=== PATIENT | female | born 1955 | race Caucasian/White ===

== ENCOUNTER → 2018-08-02 | Outpatient (CLI) | payer BC ==
[2018-08-02 15:15] LABS: HCT 40.5 % (34.0-46.0); HGB 13.5 gm/dL (11.4-16.0); MCH 30.2 pg (25.0-35.0); MCHC 33.3 g/dL (31.0-37.0); MCV 90.7 fL (80.0-100.0); Mean Platelet Volume 6.8; Platelet Count 175 k/uL (150-450); RBC 4.46 m/uL (3.80-5.40); RDW 14.1 % (11.5-15.5); WBC 4.3 k/uL (3.8-10.6)
[2018-08-02 15:33] LABS: Partial Thromboplastin Time 22.1 sec (22.0-30.0); Prothrombin Time 9.7 sec (9.0-12.0)
[2018-08-02 15:34] LABS: ALT 46 U/L (9-52); AST 34 U/L (14-36); Albumin 4.2 g/dL (3.5-5.0); Alkaline Phosphatase 93 U/L (38-126); Anion Gap 10 mmol/L; Blood Urea Nitrogen 12 mg/dL (7-17); Calcium 9.5 mg/dL (8.4-10.2); Carbon Dioxide 27 mmol/L (22-30); Chloride 105 mmol/L (98-107); Glucose 119 mg/dL (74-99); Potassium 4.1 mmol/L (3.5-5.1); Sodium 142 mmol/L (137-145); Total Bilirubin 0.5 mg/dL (0.2-1.3); Total Protein 7.5 g/dL (6.3-8.2)
[2018-08-02 16:52] LABS: Appearance,Urine Clear (Clear); Bilirubin,Urine Negative (Negative); Blood,Urine Negative (Negative); Color,Urine Yellow; Glucose,Urine (UA) Negative (Negative); Ketones,Urine Negative (Negative); Leukocyte Esterase,Urine Negative (Negative); Nitrite,Urine Negative (Negative); Protein,Urine Negative (Negative); Specific Gravity,Urine 1.014 (1.001-1.035); Urobilinogen,Urine <2.0 mg/dL (<2.0)
== END | disposition home or self-care (01) ==
LOC: LABWHC1 14:18 → LABPAT 14:23
PROVIDERS: ATTEND Orthopaedic Surgery
DX: Z01.818 Encounter for other preprocedural examination (principal); Z01.812 Encounter for preprocedural laboratory examination
CPT/HCPCS: 36415; 80053; 81003; 85027; 85610; 85730; 87070; 93005

== ENCOUNTER 2018-08-08 09:15 | Inpatient (IN) | payer BC ==
[~2018-08-08 09:15] MED LIST: ACETAMINOPHEN TAB 500 MG TAB PO ONE; MELOXICAM 7.5 MG TAB PO ONE; ROPIVACAINE 246.25 MG, EPINEPHrine 0.5 MG, KETOROLAC 30 MG, cloNIDine HCL/PF 80 MCG, WA... MISCELLANE ONE; TRANEXAMIC ACID 1,000 MG in SODIUM CHLORIDE 0.9% 50 ML IVPB ONE; ceFAZolin IN SWFI 2 GM/20 ML SYRINGE IVP ONE
[2018-08-08] MEDS ORDERED: LACTATED RINGERS 1,000 ML IV ONE ×2 (10:30→12:35)
[2018-08-08] MEDS ORDERED: LIDOCAINE 1% 20 ML VIAL (10MG/ML) FOR IV START INTRADERMA ONE (10:30)
[2018-08-08] MEDS ORDERED: ONDANSETRON 4 MG/2 ML VIAL IVP ONE (10:40)
[2018-08-08] MEDS ORDERED: DEXAMETHASONE SOD PHOS (MDV) 100 MG/10 ML VIAL IV ONE (10:40)
[2018-08-08] MEDS ORDERED: MIDAZOLAM 2 MG/2 ML VIAL IV ONE (10:45)
[2018-08-08] MEDS ORDERED: fentaNYL (PF) 50 MCG/ML 2 ML AMP IV ONE (10:45)
[2018-08-08] MEDS ORDERED: NALOXONE 0.4 MG/ML 1 ML VIAL IV PRN (11:26)
[2018-08-08] MEDS ORDERED: MAGNESIUM HYDROXIDE 2,400 MG/10 ML CUP PO PRN (11:26)
[2018-08-08] MEDS ORDERED: HYDROcodone/APAP 5-325MG 1 EACH TAB PO PRN (11:26)
[2018-08-08] MEDS ORDERED: hydrOXYzine PAMOATE 25 MG CAP PO PRN (11:26)
[2018-08-08] MEDS ORDERED: NA PHOS,M-B/NA PHOS,DI-BA 133 ML ENEMA RECTAL PRN (11:26)
[2018-08-08] MEDS ORDERED: BISACODYL 10 MG SUPP RECTAL PRN (11:26)
[2018-08-08] MEDS ORDERED: HYDROmorphone 1 MG/ML 1 ML SYRINGE IVP PRN ×3 (11:26)
[2018-08-08] MEDS ORDERED: ROPIVACAINE 1,100 MG, SODIUM CHLORIDE 0.9% 500 ML 330 ML MISCELLANE PRN ×2 (11:27)
--- NOTE | 2018-08-08 11:30 | P.ONQ ---
Anesthesiology Proc Note - PNB - Peripheral Nerve Block Performed Left Adductor Canal Infusion Time Out Performed: Yes Procedure Start Time: 10:42 Indication: Acute Post-Operative Pain, Analgesia Specifically requested for management of pain by DrClaudia: Armani Yo Sedation Type: Sedate with meaningful contact maintained Preparation: Sterile Prep Position: Supine Catheter Depth at Skin (cm): 8 Catheter: Indwelling Needle Types: Other (see comment) (Pajunk) Needle Size: 150mm (6") Needle Gauge: 18 Technique: Ultrasound Injectate: 0.5% Ropivacaine (see comment for volume) (20cc) Blood Aspirated: Yes Pain Paresthesia on Injection Noted: No Resistance on Injection: Normal Events: Uneventful and Well Tolerated (Catheter was repositioned successfully)
[2018-08-08] MEDS ORDERED: ROCURONIUM BROMIDE 10 MG/ML 10 ML VIAL IV ONE (12:10)
[2018-08-08] MEDS ORDERED: fentaNYL (PF) 50 MCG/ML 2 ML AMP ONE (12:10)
[2018-08-08] MEDS ORDERED: LIDOCAINE 1% INJ 10MG/ML (20 ML MDV) ONE (12:10)
[2018-08-08] MEDS ORDERED: SODIUM CHLORIDE 0.9% 100 ML BAG ONE (12:10)
[2018-08-08] MEDS ORDERED: TRANEXAMIC ACID 1,000 MG/10 ML VIAL ONE (12:10)
[2018-08-08] MEDS ORDERED: ceFAZolin 3,000 MG in SODIUM CHLORIDE 0.9% IRRIGATIO 3,000 ML IRRIGATION ONE (12:10)
[2018-08-08] MEDS ORDERED: PROPOFOL 10 MG/ML 20 ML VIAL IV ONE (12:10)
[2018-08-08] MEDS ORDERED: SUCCINYLCHOLINE CHLORIDE 100 MG/5 ML SYR IV ONE (12:10)
[2018-08-08] MEDS ORDERED: MIDAZOLAM 2 MG/2 ML VIAL ONE (12:10)
--- NOTE | 2018-08-08 13:21 | P.OP ---
Date of Procedure: 08/08/18 Preoperative Diagnosis: Severe osteoarthritis left knee Postoperative Diagnosis: Severe osteoarthritis left knee Procedure(s) Performed: Left total knee arthroplasty Implants: Parisi [employer] Nephew Oxinium femoral component size 6, left Parisi & Nephew Carmen II left nonporous tibial baseplate size 4 Parisi [employer] Nephew size 9 mm Legion XLPE dished articular insert, size 3-4 Parisi [employer] Nephew Carmen II resurfacing patellar component, 32 mm All components were cemented using Juan Carlos bone cement.. The articulation is Oxinium on polyethylene. Anesthesia: GETA Surgeon: Armani Yo Release Of Information Specialist #1: Kenia Kolb Estimated Blood Loss (ml): 50 Pathology: other (Bone and cartilage) Condition: stable Disposition: PACU Indications for Procedure: After failure of conservative treatment we discussed the surgical and nonsurgical treatment options at length. Patient wishes to proceed with a total knee arthroplasty. Complications specific to this procedure were discussed at length, including but not limited to infection, bleeding, stiffness , and nerve injury. Patient is aware of all these complications and informed consent was obtained Operative Findings: The operative findings are consistent with severe osteoarthritis of the left knee Description of Procedure: Patient was seen in the preoperative area consent was reviewed and operative site was marked with a skin marker. An adductor canal pain catheter was placed by anesthesia in the preoperative area. Patient was then brought to the operating room and given preoperative antibiotics intravenously. A general anesthetic was administered by the anesthesia department. A tourniquet was placed on the upper thigh and the lower extremity was prepped and draped in usual sterile fashion. A gram of transexamic acid was given. A universal timeout was then performed which confirmed the patient's name, surgical site, ALLERGIES, and consent. The lower extremity was then exsanguinated and tourniquet was inflated to 250 mmHg. A standard and anterior midline approach to the knee was performed. The skin and subcutaneous tissue was dissected down to the patellar tendon. A medial parapatellar arthrotomy was then performed. The knee was then extended, the patellar was everted, and the knee was again flexed. Anterior horns of both menisci were excised, and a release was performed to the posterior medial aspect of the knee. On gross visual inspection, there was complete loss of articular cartilage in the medial and patellofemoral joint spaces. There was also significant cartilage damage in the lateral compartment. There were multiple periarticular osteophytes which were then removed with a Ronguer. The femoral canal was then opened with the appropriate drill, and the intramedullary femoral cutting guide was then placed and set for 4 of valgus. The distal femoral cutting block was then pinned in place, and the distal femur was then cut. The cutting block was then removed and the cut was checked for flatness. Next, the sizing guide was then placed and set for 3 external rotation based off of the epicondylar axis and Whitesides line. After the femur was sized, the appropriate 4-in-1 cutting block was then pinned in place. The anterior condyles were cut without notching. The posterior and chamfer cuts were performed while protecting the collateral ligaments. The cutting block was then removed, and the femoral canal was plugged with autologous bone. Attention was then directed to the tibia. The remaining ACL was removed with a Ronguer, and the tibia was then gently subluxed forward with a large bent knee retractor. Any remaining menisci was excised. The posterior lateral corner was cauterized in order to cauterize the lateral geniculate artery. The extra medullary tibial cutting guide was then placed, set for the appropriate rotation , slope, and depth of resection. The proximal tibia cutting guide was then pinned in place. Proximal tibia was then cut and sized. Next trials were then placed with the appropriate-sized insert. The knee was able to fully extend and flex to 130 and was stable throughout all range of motion. The knee was then extended, patella everted. Patella was then measured, and then using an osteotomy guide, the patella was cut at the appropriate level. The patella was then measured and drilled and the patella trial was then placed. The knee was then taken through range of motion with the patella trial and the patella tracked normally. The knee was then extended patella trial was then removed and the patella was everted. Knee was then flexed and lug holes were drilled through the femoral trial and the femoral trial was then removed. The tibial was then exposed, and the tibial broach guide was then pinned in place after it was set for the appropriate rotation to allow for the most coverage without overhang. The tibia was then reamed and broached. The cut surfaces of bone were then irrigated with pulsatile lavage. The posterior structures were injected with the ropivacaine solution. The knee was also irrigated with Irrisept solution. The components were then opened, the cement was mixed, and the components were then cemented in place. The cement was allowed to harden with the knee in full extension. While the cement was hardening, the remaining soft tissues were then injected with a ropivacaine solution, which consisted of 246.25 mg of ropivacaine, 0.5 mg of epinephrine, 30 mg of Toradol, 80 g of clonidine, and 48.45 mL of sterile water, for a total of 100 mL of fluid injected. After the cemented hardened. The tourniquet was released, and hemostasis was obtained. A second gram of transexamic acid was given. The knee was again irrigated. The knee was again taken through range of motion and found to be stable throughout all range of motion of 0-130 , and the patella tracked normally. The fascia was then closed with #2 strata fix suture. The subcutaneous tissue was closed with 3-0 Vicryl and 3-0 strata fix. Dermabond glue was used for the skin and placed with the knee in flexion. The patient was placed in a sterile silver dressing. Patient was then transferred to recovery room in stable condition. The property assistant JAKE Echavarria was required due the complexity surgery and the need for a skilled surgical technologist. She assisted in positioning, draping, retraction, and closure of the wound.
[2018-08-08] MEDS ORDERED: HYDROmorphone 1 MG/ML 1 ML SYRINGE IVP ONE ×2 (14:24→14:35)
--- NOTE | 2018-08-08 14:50 | XR ---
EXAMINATION TYPE: XR knee limited LT DATE OF EXAM: 08/08/2018 CLINICAL HISTORY: Left knee pain and arthritis status post total knee replacement. TECHNIQUE: Portable AP and crosstable lateral views of the left knee are obtained immediately postop eratively. COMPARISON: None FINDINGS: Metallic hardware from total left knee arthroplasty is seen and appears satisfactory in al ignment and position. There is evidence of recent surgery with diffuse subcutaneous gas and soft tis ondina swelling noted. IMPRESSION: METALLIC HARDWARE FROM TOTAL LEFT KNEE ARTHROPLASTY IS SATISFACTORY IN ALIGNMENT.
--- NOTE | 2018-08-08 15:48 | P.CONS ---
History of Present Illness - Reason for Consult Recommendations regarding antihypertensive medications. - History of Present Illness 62-year-old pleasant female admitted for left knee arthroplasty excessive underwent surgery clinically doing well. No denied any chest pain nausea vomiting abdominal pain. Did not pass gas yet did not move her bowel yet. Review of Systems REVIEW OF SYSTEMS: CONSTITUTIONAL: No fever, no malaise, no fatigue. HEENT: No recent visual problems or hearing problems. Denied any sore throat. CARDIOVASCULAR: No chest pain, orthopnea, PND, no palpitations, no syncope. PULMONARY: No shortness of breath, no cough, no hemoptysis. GASTROINTESTINAL: No diarrhea, no nausea, no vomiting, no abdominal pain. Normoactive bowel sounds. NEUROLOGICAL: No headaches, no weakness, no numbness. HEMATOLOGICAL: Denies any bleeding or petechiae. GENITOURINARY: Denies any burning micturition, frequency, or urgency. MUSCULOSKELETAL/RHEUMATOLOGICAL: Denies any joint pain, swelling, or any muscle pain. ENDOCRINE: Denies any polyuria or polydipsia. The rest of the 14-point review of systems is negative. Past Medical History Past Medical History: Fibromyalgia, GERD/Reflux, Hypertension, Osteoarthritis ( OA), Pneumonia, Rheumatoid Arthritis (RA) Additional Past Medical History / Comment(s): IBS, hx kidney stones, constipation, History of Any Multi-Drug Resistant Organisms: None Reported Past Surgical History: Back Surgery, Bladder Surgery, Breast Surgery, Hysterectomy, Orthopedic Surgery, Tonsillectomy Additional Past Surgical History / Comment(s): lelia breast reduction, lithotripsy , rbil achilles tendon surgery, lelia knee arthroscopy, bladder suspension, "stabalization" L4 L5 S1, breast biopsies, rt shoulder arthroscopy, left wrist bone spur, Past Anesthesia/Blood Transfusion Reactions: Previous Problems w/ Anesthesia, Motion Sickness Additional Past Anesthesia/Blood Transfusion Reaction / Comm: woke up twice during surgery Smoking Status: Never smoker - Past Family History Sister(s) Family Medical History: Deep Vein Thrombosis (DVT) Daughter(s) Family Medical History: Cancer Medications and Allergies Home Medications Medication Instructions Recorded Confirmed Type Cyclobenzaprine [Flexeril] 10 mg PO BID 09/09/15 08/08/18 History Hydroxychloroquine Sulfate 200 mg PO HS 09/09/15 08/08/18 History [Plaquenil] Metoprolol Succinate [Toprol XL] 25 mg PO HS 09/09/15 08/08/18 History Gabapentin [Neurontin] 300 mg PO TID 08/01/18 08/08/18 History amLODIPine BESYLATE [Norvasc] 10 mg PO HS 08/01/18 08/08/18 History traMADol HCL [Ultram] 50 mg PO TID 08/01/18 08/08/18 History Allergies Allergy/AdvReac Type Severity Reaction Status Date / Time diazepam [From Valium] Allergy "felt like Verified 08/08/18 15:28 I did not want to live anymore" epinephrine AdvReac Rapid Verified 08/08/18 15:28 Heart Rate, "pass out" Physical Exam Vitals: Vital Signs Temp Pulse Pulse Resp BP Pulse Ox 08/08/18 15:00 84 16 140/61 98 08/08/18 14:45 83 16 146/66 99 08/08/18 14:30 83 16 148/59 99 08/08/18 14:15 87 16 162/72 92 L 08/08/18 14:00 88 16 159/65 92 L 08/08/18 13:57 98.0 F 94 16 167/77 96 08/08/18 10:21 98 F 84 18 154/80 96 Intake and Output 08/08/18 08/08/18 08/08/18 06:59 14:59 22:59 Intake Total 1201 300 Output Total 50 Balance 1151 300 Intake: IV 1201 300 Output: Estimated Blood Loss 50 PHYSICAL EXAMINATION: GENERAL: The patient is alert and oriented x3, not in any acute distress. Well developed, well nourished. HEENT: Pupils are round and equally reacting to light. EOMI. No scleral icterus. No conjunctival pallor. Normocephalic, atraumatic. No pharyngeal erythema. No thyromegaly. CARDIOVASCULAR: S1 and S2 present. No murmurs, rubs, or gallops. PULMONARY: Chest is clear to auscultation, no wheezing or crackles. ABDOMEN: Soft, nontender, nondistended, normoactive bowel sounds. No palpable organomegaly. MUSCULOSKELETAL: Deferred to orthopedic surgery and left knee is wrapped with an Jaspreet bandage and no surgical drain EXTREMITIES: No cyanosis, clubbing, or pedal edema. NEUROLOGICAL: Gross neurological examination did not reveal any focal deficits. SKIN: No rashes. Assessment and Plan Plan: -Left knee arthroplasty postoperative day 0: Pain management and DVT prophylaxis as per primary service. -Hypertension patient blood pressure is well controlled and she did take her Norvasc today which resumed from tomorrow morning along with metoprolol -Rheumatoid arthritis: Plaque will be resumed -Chronic low back pain had a lumbar decompression surgery in the past -Gastroesophageal reflux disease -Fibromyalgia for which patient is on gabapentin which will be continued
[2018-08-08] MEDS: GABAPENTIN 300 MG CAP PO SCH ×2 (17:06→22:34)
[2018-08-08] MEDS: SODIUM CHLORIDE 0.9% 1,000 ML IV SCH (17:06)
[2018-08-08 17:17] VITALS: BMI 34.1
[2018-08-08] MEDS ORDERED: METOPROLOL SUCCINATE (ER) 25 MG TAB.ER.24H PO SCH (21:00)
[2018-08-08] MEDS ORDERED: SENNOSIDES-DOCUSATE SODIUM 1 EACH TAB PO SCH (21:00)
[2018-08-08] MEDS ORDERED: amLODIPine 10 MG TAB PO SCH (21:00)
[2018-08-08] MEDS ORDERED: HYDROXYCHLOROQUINE SULFATE 200 MG TAB PO SCH (21:00)
[2018-08-08] MEDS: ceFAZolin IN SWFI 2 GM/20 ML SYRINGE IVP SCH (21:19)
[2018-08-08] MEDS: ASPIRIN 325 MG TAB PO SCH (21:20)
[2018-08-08] MEDS: CYCLOBENZAPRINE 10 MG TAB PO SCH (21:20)
[2018-08-08] MEDS: HYDROcodone/APAP 5-325MG 1 EACH TAB PO PRN (22:34)
[2018-08-08 23:59] VITALS: RESP 17
[2018-08-09] MEDS: ceFAZolin IN SWFI 2 GM/20 ML SYRINGE IVP SCH (03:35)
[2018-08-09] MEDS: SODIUM CHLORIDE 0.9% 1,000 ML IV SCH ×2 (04:27→09:19)
[2018-08-09 08:10] VITALS: BP 165/86; PULSE 78; TEMP 98.1
--- NOTE | 2018-08-09 08:36 | P.DS ---
Providers Date of admission: 08/08/18 09:30 Expected date of discharge: 08/09/18 Attending physician: Armani Yo Consults: 08/08/18 11:26 Consult Physician Routine Consulting Provider: Zena Dalal Consult Reason/Comments: medical management Do you want consulting provider notified?: Yes 08/08/18 15:20 Consult Physician Routine Consulting Provider: Jasmin Baca Consult Reason/Comments: medical management Do you want consulting provider notified?: Yes Primary care physician: Zena Dalal - Discharge Diagnosis(es) (1) S/P total knee arthroplasty Current Visit: Yes Status: Acute (2) Primary osteoarthritis of left knee Current Visit: Yes Status: Acute Hospital Course: This is a 62-year-old female with known history of degenerative arthritis of the left knee. The patient presents for evaluation. After discussion and consideration patient elects to proceed with total knee arthroplasty. The patient is seen preoperatively by Dr. Yo and medically cleared for surgery by their primary care physician. Patient is admitted to [facility] on 08/08/2018 for total knee arthroplasty. The procedures performed without complication or sequelae. The patient is doing well postoperatively. Labs and vital signs are stable on day of discharge. On day of discharge patient's knee incision is healing well. There is minimal erythema. There is no drainage noted at this time. There is minimal soft tissue swelling to the knee. Patient has full foot and ankle motion without difficulty or pain. Neurovascular status to the left lower extremity is intact. Patient is discharged home in good condition. Please see med rec for accurate list of home medications. Plan - Discharge Summary Discharge Rx Participant: Yes New Discharge Prescriptions: New Aspirin 325 mg PO BID #60 tab HYDROcodone/APAP 5-325MG [[place] 5-325] 1 - 2 tab PO Q4-6H PRN #84 tab PRN Reason: Pain Sennosides [Senokot] 1 tab PO BID #60 tablet No Action Metoprolol Succinate [Toprol XL] 25 mg PO HS Cyclobenzaprine [Flexeril] 10 mg PO BID Hydroxychloroquine Sulfate [Plaquenil] 200 mg PO HS traMADol HCL [Ultram] 50 mg PO TID Gabapentin [Neurontin] 300 mg PO TID amLODIPine BESYLATE [Norvasc] 10 mg PO HS Discharge Medication List Cyclobenzaprine [Flexeril] 10 mg PO BID 09/09/15 [History] Hydroxychloroquine Sulfate [Plaquenil] 200 mg PO HS 09/09/15 [History] Metoprolol Succinate [Toprol XL] 25 mg PO HS 09/09/15 [History] Gabapentin [Neurontin] 300 mg PO TID 08/01/18 [History] amLODIPine BESYLATE [Norvasc] 10 mg PO HS 08/01/18 [History] traMADol HCL [Ultram] 50 mg PO TID 08/01/18 [History] Aspirin 325 mg PO BID #60 tab 08/09/18 [Rx] HYDROcodone/APAP 5-325MG [[place] 5-325] 1 - 2 tab PO Q4-6H PRN #84 tab 08/09/18 [ Rx] Sennosides [Senokot] 1 tab PO BID #60 tablet 08/09/18 [Rx] Follow up Appointment(s)/Referral(s): Armani Yo DO [Doctor of Osteopathic Medicine] - 2 Weeks Ambulatory/Diagnostic Orders: Continuous Passive Motion (CPM) Machine [DME.AMB1] Time Frame: 3 Weeks, Location : None Selected Activity/Diet/Wound Care/Special Instructions: Weightbearing as tolerated with a walker CPM 5-6h daily Leave dressing intact. May be removed by home care nurse in 10 days. May shower with dressing on. Please call [facility] with any questions or concerns, . Discharge Disposition: HOME WITH HOME HEALTH SERVICES
[2018-08-09] MEDS ORDERED: MELOXICAM 7.5 MG TAB PO SCH (09:00)
[2018-08-09] MEDS: CYCLOBENZAPRINE 10 MG TAB PO SCH (09:17)
[2018-08-09] MEDS: GABAPENTIN 300 MG CAP PO SCH (09:18)
[2018-08-09] MEDS: ASPIRIN 325 MG TAB PO SCH (09:19)
[2018-08-09 10:37] LABS: Basophils % (A) 0 %; Eosinophils % (A) 0 %; HCT 37.7 % (34.0-46.0); HGB 12.2 gm/dL (11.4-16.0); Lymphocytes % (A) 10 %; MCH 29.5 pg (25.0-35.0); MCHC 32.4 g/dL (31.0-37.0); MCV 91.1 fL (80.0-100.0); Mean Platelet Volume 7.4; Monocytes # (A) 0.6 k/uL (0-1.0); Monocytes % (A) 6 %; Neutrophils # (A) 8.5 k/uL (1.3-7.7); Neutrophils % (A) 83 %; Platelet Count 202 k/uL (150-450); RBC 4.14 m/uL (3.80-5.40); RDW 13.9 % (11.5-15.5); WBC 10.2 k/uL (3.8-10.6)
[2018-08-09] MEDS: HYDROcodone/APAP 5-325MG 1 EACH TAB PO PRN (11:53)
--- NOTE | 2018-08-09 12:02 | P.PN ---
Progress Note - Text Anesthesia POD 1. Patient is status post left TKR under general endotracheal anesthesia with a left adductor canal catheter placed for postoperative pain relief. With ropivacaine 0.2% running at 8 cc's per hour, the patient's VAS is (1, 3). Catheter site is clean dry and intact.
--- NOTE | 2018-08-09 20:10 | P.PN ---
Subjective Progress Note Date: 08/09/18 Progress note being dictated for Dr. Ivan. Interval history:62-year-old pleasant female admitted for left knee arthroplasty excessive underwent surgery clinically doing well. No denied any chest pain nausea vomiting abdominal pain. Did not pass gas yet did not move her bowel yet. 08/09/2018 passing minimal gas, no bowel movement. Pain controlled. Good diet intake, no nausea, no vomiting. Ambulating, tolerating exertion with no lightheadedness dizziness or focal deficits. Denies chest pain, palpitations. Planning on discharge by orthopedic surgery today. Objective - Vital Signs Vital signs: Vital Signs Temp 98.1 F 08/09/18 06:50 Pulse 78 08/09/18 06:50 Resp 17 08/08/18 23:58 BP 165/86 08/09/18 06:50 Pulse Ox 96 08/09/18 06:50 Intake & Output 08/08/18 08/09/18 08/09/18 18:59 06:59 18:59 Intake Total 1501 360 300 Output Total 50 Balance 1451 360 300 Weight 107.955 kg Intake: IV 1501 Oral 360 300 Output: Estimated Blood Loss 50 Other: # Voids 1 - Exam GENERAL: The patient is alert and oriented x3, not in any acute distress. HEENT: Pupils are round and equally reacting to light. EOMI. No scleral icterus. No conjunctival pallor. Normocephalic, atraumatic. CARDIOVASCULAR: S1 and S2 present. No murmurs, rubs, or gallops. PULMONARY: Chest is clear to auscultation, no wheezing or crackles. ABDOMEN: Soft, nontender, nondistended, normoactive bowel sounds. No palpable organomegaly. MUSCULOSKELETAL: Deferred to orthopedic surgery EXTREMITIES: No cyanosis, clubbing, or pedal edema. NEUROLOGICAL: Gross neurological examination did not reveal any focal deficits. SKIN: No rashes. - Labs CBC & Chem 7: 08/09/18 08:24 Labs: Abnormal Lab Results - Last 24 Hours (Table) 08/09/18 Range/Units 08:24 Neutrophils # 8.5 H (1.3-7.7) k/uL Assessment and Plan Assessment: -Left knee arthroplasty -Hypertension -Rheumatoid arthritis -Chronic low back pain had a lumbar decompression surgery in the past -Gastroesophageal reflux disease -Fibromyalgia Plan: Continue on current medication regime ,monitoring and symptomatic treatment. Pain management and DVT prophylaxis as per primary service. Aggressive pulmonary toileting with incentive spirometer reinforced. Discharge planning in progress as per orthopedic surgery. Follow-up with PCP in 1 week. The impression and plan of care has been dictated as directed. : I performed a history and examination of this patient, discussed the same with the dictator. I agree with the dictator's note ,documented as a scribe. Any additional findings or plans will be noted.
== END 2018-08-09 12:45 | disposition home health service (06) | DRG 470 ==
LOC: 2ORMAIN 09:30 → 4SSUR 14:44
PROVIDERS: ADMIT Orthopaedic Surgery; ATTEND Orthopaedic Surgery
PROC: 0SRD069 Replacement of Left Knee Joint with Oxidized Zirconium on Polyethylene Synthetic Substitute, Cemented, Open Approach (ICD-10-PCS; principal; 2018-08-08 11:30)
DX: M17.0 Bilateral primary osteoarthritis of knee (principal); M06.9 Rheumatoid arthritis, unspecified; I10 Essential (primary) hypertension; M79.7 Fibromyalgia; K58.1 Irritable bowel syndrome with constipation; K21.9 Gastro-esophageal reflux disease without esophagitis; Z79.891 Long term (current) use of opiate analgesic; Z79.899 Other long term (current) drug therapy; Z87.01 Personal history of pneumonia (recurrent); Z87.442 Personal history of urinary calculi; Z90.710 Acquired absence of both cervix and uterus; Z98.890 Other specified postprocedural states; Z88.8 Allergy status to other drugs, medicaments and biological substances; Z83.2 Family history of diseases of the blood and blood-forming organs and certain disorders involving the immune mechanism; Z80.9 Family history of malignant neoplasm, unspecified; G89.29 Other chronic pain; M54.5 Low back pain
CPT/HCPCS: 85025; 88300

== ENCOUNTER → 2018-09-21 | Outpatient (CLI) | payer BC | END | disposition home or self-care (01) | LOC: LABPAT 15:44 | PROVIDERS: ATTEND Orthopaedic Surgery | DX: Z01.812 Encounter for preprocedural laboratory examination (principal) | CPT/HCPCS: 87070 ==

== ENCOUNTER 2018-10-03 09:15 | Inpatient (IN) | payer BC ==
[~2018-10-03 09:15] MED LIST changes: +DEXAMETHASONE SOD PHOSPHATE 10 MG/ML 1 ML VIAL IV ONE; +HYDROmorphone 0.5 MG/0.5 ML SYRINGE IVP PRN; +LIDOCAINE 1% 20 ML VIAL (10MG/ML) FOR IV START INTRADERMA PRN; +MIDAZOLAM (PF) 2 MG/2 ML VIAL IV PRN; +ONDANSETRON 4 MG/2 ML VIAL IVP ONE; +SCOPOLAMINE 1.5MG/72HR PATCH TRANSDERM ONE
[2018-10-03] MEDS: LACTATED RINGERS 1,000 ML IV SCH (12:22)
[2018-10-03] MEDS ORDERED: ROPIVACAINE 1,100 MG, SODIUM CHLORIDE 0.9% 500 ML 330 ML MISCELLANE PRN ×2 (13:09)
--- NOTE | 2018-10-03 13:11 | P.ONQ ---
Anesthesiology Proc Note - PNB - Peripheral Nerve Block Performed Right Adductor Canal Infusion Time Out Performed: Yes Procedure Start Time: 12:50 Procedure Stop Time: 12:58 Indication: Acute Post-Operative Pain, Analgesia, Dx/Pain Location, Requested by physician Sedation Type: Sedate with meaningful contact maintained Preparation: Sterile Prep Position: Supine Catheter: Indwelling Needle Types: On-Q Needle Size: 100mm (4") Technique: Ultrasound Injectate: 0.5% Ropivacaine (see comment for volume) Blood Aspirated: No Pain Paresthesia on Injection Noted: No Resistance on Injection: Normal Events: Uneventful and Well Tolerated (20 ml total volume)
[2018-10-03] MEDS ORDERED: SODIUM CHLORIDE 0.9% 100 ML BAG ONE (13:59)
[2018-10-03] MEDS ORDERED: ePHEDrine SULFATE/0.9% NACL/PF 50 MG/5 ML SYRINGE IV ONE (13:59)
[2018-10-03] MEDS ORDERED: TRANEXAMIC ACID 1,000 MG/10 ML VIAL ONE (13:59)
[2018-10-03] MEDS ORDERED: MIDAZOLAM 2 MG/2 ML VIAL ONE (13:59)
[2018-10-03] MEDS ORDERED: PHENYLEPHRINE-0.9% NACL SYG 1 MG/10 ML SYRINGE ONE (13:59)
[2018-10-03] MEDS ORDERED: fentaNYL (PF) 50 MCG/ML 2 ML AMP ONE (13:59)
[2018-10-03] MEDS ORDERED: SUCCINYLCHOLINE CHLORIDE 100 MG/5 ML SYR IV ONE (13:59)
[2018-10-03] MEDS ORDERED: LIDOCAINE 1% INJ 10MG/ML (20 ML MDV) ONE (13:59)
[2018-10-03] MEDS ORDERED: PROPOFOL 10 MG/ML 20 ML VIAL IV ONE (13:59)
[2018-10-03] MEDS ORDERED: BISACODYL 10 MG SUPP RECTAL PRN (14:07)
[2018-10-03] MEDS ORDERED: NA PHOS,M-B/NA PHOS,DI-BA 133 ML ENEMA RECTAL PRN (14:07)
[2018-10-03] MEDS ORDERED: hydrOXYzine PAMOATE 25 MG CAP PO PRN (14:07)
[2018-10-03] MEDS ORDERED: HYDROmorphone 1 MG/ML 1 ML SYRINGE IVP PRN (14:07)
[2018-10-03] MEDS ORDERED: MAGNESIUM HYDROXIDE 2,400 MG/10 ML CUP PO PRN (14:07)
[2018-10-03] MEDS ORDERED: HYDROmorphone 0.5 MG/0.5 ML SYRINGE IVP PRN ×2 (14:07)
[2018-10-03] MEDS ORDERED: HYDROcodone/APAP 5-325MG 1 EACH TAB PO PRN (14:07)
[2018-10-03] MEDS ORDERED: ONDANSETRON 4 MG/2 ML VIAL IVP PRN (14:07)
[2018-10-03] MEDS ORDERED: NALOXONE 0.4 MG/ML 1 ML VIAL IV PRN (14:07)
[2018-10-03] MEDS ORDERED: ceFAZolin 3,000 MG in SODIUM CHLORIDE 0.9% IRRIGATIO 3,000 ML IRRIGATION ONE (14:23)
[2018-10-03] MEDS ORDERED: LACTATED RINGERS 1,000 ML IV ONE (14:37)
--- NOTE | 2018-10-03 15:18 | P.OP ---
Date of Procedure: 10/03/18 Preoperative Diagnosis: Severe osteoarthritis right knee Postoperative Diagnosis: Severe osteoarthritis right knee Procedure(s) Performed: Right total knee arthroplasty Implants: [employer]i [employer] Nephew Journey II CR Oxinium cruciate retaining femoral component size 5, right [employer] Journey right nonporous tibial baseplate size 5 [employer] Journey II, XLPE CR articular insert, size 9 mm, Size 5-6 right [employer] Journey BCS resurfacing oval patellar component, 32 mm All components were cemented using Pal[place]os R bone cement.. The articulation is Oxinium on polyethylene. Anesthesia: spinal Surgeon: Armani Yo Camera Repair Technician #1: Kenia Kolb Estimated Blood Loss (ml): 50 Pathology: other (Bone and cartilage) Condition: stable Disposition: PACU Indications for Procedure: After failure of conservative treatment we discussed the surgical and nonsurgical treatment options at length. Patient wishes to proceed with a total knee arthroplasty. Complications specific to this procedure were discussed at length, including but not limited to infection, bleeding, stiffness , and nerve injury. Patient is aware of all these complications and informed consent was obtained Operative Findings: The operative findings are consistent with severe osteoarthritis of the right knee Description of Procedure: Patient was seen in the preoperative area consent was reviewed and operative site was marked with a skin marker. An adductor canal pain catheter was placed by anesthesia in the preoperative area. Patient was then brought to the operating room and given preoperative antibiotics intravenously. A spinal anesthetic was administered by the anesthesia department. A tourniquet was placed on the upper thigh and the lower extremity was prepped and draped in usual sterile fashion. A gram of transexamic acid was given. A universal timeout was then performed which confirmed the patient's name, surgical site, ALLERGIES, and consent. The lower extremity was then exsanguinated and tourniquet was inflated to 250 mmHg. A standard and anterior midline approach to the knee was performed. The skin and subcutaneous tissue was dissected down to the patellar tendon. A medial parapatellar arthrotomy was then performed. The knee was then extended, the patellar was everted, and the knee was again flexed. Anterior horns of both menisci were excised, and a release was performed to the posterior medial aspect of the knee. On gross visual inspection, there was complete loss of articular cartilage in the medial and patellofemoral joint spaces. There was also significant cartilage damage in the lateral compartment. There were multiple periarticular osteophytes which were then removed with a Ronguer. The femoral canal was then opened with the appropriate drill, and the intramedullary femoral cutting guide was then placed and set for 5 of valgus. The distal femoral cutting block was then pinned in place, and the distal femur was then cut. The cutting block was then removed and the cut was checked for flatness. Next, the sizing guide was then placed and set for 3 external rotation based off of the epicondylar axis and Whitesides line. After the femur was sized, the appropriate 4-in-1 cutting block was then pinned in place. The anterior condyles were cut without notching. The posterior and chamfer cuts were performed while protecting the collateral ligaments. The cutting block was then removed, and the femoral canal was plugged with autologous bone. Attention was then directed to the tibia. The remaining ACL was removed with a Ronguer, and the tibia was then gently subluxed forward with a large bent knee retractor. Any remaining menisci was excised. The posterior lateral corner was cauterized in order to cauterize the lateral geniculate artery. The extra medullary tibial cutting guide was then placed, set for the appropriate rotation , slope, and depth of resection. The proximal tibia cutting guide was then pinned in place. Proximal tibia was then cut and sized. Next trials were then placed with the appropriate-sized insert. The knee was able to fully extend and flex to 130 and was stable throughout all range of motion. The knee was then extended, patella everted. Patella was then measured, and then using an osteotomy guide, the patella was cut at the appropriate level. The patella was then measured and drilled and the patella trial was then placed. The knee was then taken through range of motion with the patella trial and the patella tracked normally. The knee was then extended patella trial was then removed and the patella was everted. Knee was then flexed and lug holes were drilled through the femoral trial and the femoral trial was then removed. The tibial was then exposed, and the tibial broach guide was then pinned in place after it was set for the appropriate rotation to allow for the most coverage without overhang. The tibia was then reamed and broached. The cut surfaces of bone were then irrigated with pulsatile lavage. The posterior structures were injected with the ropivacaine solution. The knee was also irrigated with Irrisept solution. The components were then opened, the cement was mixed, and the components were then cemented in place. The cement was allowed to harden with the knee in full extension. While the cement was hardening, the remaining soft tissues were then injected with a ropivacaine solution, which consisted of 246.25 mg of ropivacaine, 0.5 mg of epinephrine, 30 mg of Toradol, 80 g of clonidine, and 48.45 mL of sterile water, for a total of 100 mL of fluid injected. After the cemented hardened. The tourniquet was released, and hemostasis was obtained. A second gram of transexamic acid was given. The knee was again irrigated. The knee was again taken through range of motion and found to be stable throughout all range of motion of 0-130 , and the patella tracked normally. The fascia was then closed with #2 strata fix suture. The subcutaneous tissue was closed with 3-0 Vicryl and 3-0 strata fix. Dermabond glue was used for the skin and placed with the knee in flexion. The patient was placed in a sterile silver dressing. Patient was then transferred to recovery room in stable condition. The gallery assistant JAKE Echavarria was required due the complexity surgery and the need for a skilled salesperson surgical appliances. She assisted in positioning, draping, retraction, and closure of the wound.
--- NOTE | 2018-10-03 16:23 | XR ---
EXAMINATION TYPE: XR knee limited RT DATE OF EXAM: 10/03/2018 COMPARISON: NONE HISTORY: 62-year-old female evaluation for postoperative abnormality and alignment TECHNIQUE: 2 views FINDINGS: Images show placement of right total knee arthroplasty. Both distal femoral and proximal tibial compo nents of the prosthesis are well seated without periprosthetic fracture. Alignment grossly anatomic. Anterior soft tissue swelling with soft tissue air as well as intra-articular air relating to recent operation. IMPRESSION: Uncomplicated postoperative appearance right total knee arthroplasty.
[2018-10-03] MEDS: SODIUM CHLORIDE 0.9% 1,000 ML IV SCH (18:00)
[2018-10-03 18:22] VITALS: BMI 34.1
[2018-10-03] MEDS: HYDROcodone/APAP 5-325MG 1 EACH TAB PO PRN (18:29)
[2018-10-03] MEDS ORDERED: SENNOSIDES-DOCUSATE SODIUM 1 EACH TAB PO SCH (21:00)
[2018-10-03] MEDS ORDERED: amLODIPine 10 MG TAB PO SCH (21:00)
[2018-10-03] MEDS ORDERED: METOPROLOL SUCCINATE (ER) 25 MG TAB.ER.24H PO SCH (21:00)
[2018-10-03] MEDS: GABAPENTIN 300 MG CAP PO SCH (22:52)
[2018-10-03] MEDS: traMADol 50 MG TAB PO SCH (22:52)
[2018-10-03] MEDS: CYCLOBENZAPRINE 10 MG TAB PO SCH (22:52)
[2018-10-03] MEDS: ASPIRIN 325 MG TAB PO SCH (22:52)
[2018-10-03] MEDS: ceFAZolin IN SWFI 2 GM/20 ML SYRINGE IVP SCH (22:52)
[2018-10-03] MEDS: HYDROXYCHLOROQUINE SULFATE 200 MG TAB PO SCH (23:34)
[2018-10-04] MEDS: HYDROcodone/APAP 5-325MG 1 EACH TAB PO PRN ×3 (00:40→13:09)
[2018-10-04 00:49] VITALS: RESP 16
[2018-10-04] MEDS: SODIUM CHLORIDE 0.9% 1,000 ML IV SCH (04:08)
[2018-10-04] MEDS: LACTATED RINGERS 1,000 ML IV SCH (04:16)
[2018-10-04] MEDS: ceFAZolin IN SWFI 2 GM/20 ML SYRINGE IVP SCH (05:58)
--- NOTE | 2018-10-04 06:14 | P.PN ---
Progress Note - Text Progress Note Date: 10/04/18 Right adductor canal catheter Postoperative day 1 Patient VAS 2 out of 10 Denies any complaints Abductor catheter site clean dry and intact Plan to continue with current plan infusion rate and management primary team to manage
--- NOTE | 2018-10-04 07:18 | CONS ---
CONSULTATION DATE OF SERVICE: 10/03/2018 REASON FOR CONSULTATION: Advice regarding fibromyalgia, hypertension and multiple other medical issues requested by Dr. Yo. HISTORY OF PRESENT ILLNESS: This 62-year-old woman with past history of fibromyalgia, GERD, hypertension, DJD, rheumatoid arthritis being followed by Dr. Dalal in the outpatient setting was admitted after right total knee arthroplasty. There is no history of fever, rigors. No history of headache, loss consciousness, seizures at this time. The patient had previous history of pneumonia. PAST MEDICAL HISTORY: Fibromyalgia, GERD, hypertension, DJD, history of rheumatoid arthritis, history of irritable bowel syndrome. MEDICATIONS: Prior to admission include home medications are: 1. Ultram 50 mg t.i.d. p.r.n. 2. Norvasc 10 mg daily. 3. Toprol-XL 25 mg. 4. Plaquenil 200 mg b.i.d. 5. Neurontin 300 mg b.i.d. 6. Flexeril 10 mg b.i.d. 7. Aspirin 320 mg p.o. b.i.d. ALLERGIES: VALIUM AND EPINEPHRINE. FAMILY HISTORY: History of cancer in the family. SOCIAL HISTORY: No history of smoking. No history of alcohol intake. REVIEW OF SYSTEMS: ENT: No diminished hearing or diminished vision. CARDIOVASCULAR: As mentioned earlier. RESPIRATORY: As mentioned earlier. GI no nausea or vomiting. no dysuria. NERVOUS SYSTEM: No numbness or weakness. ALLERGY/IMMUNOLOGY: No asthma or hayfever. MUSCULOSKELETAL: As mentioned earlier. HEMATOLOGY/ONCOLOGY: No history of anemia. ENDOCRINE: No history of diabetes or hypothyroidism. CONSTITUTIONAL: As mentioned earlier. Dermatology: Negative. Rheumatology: As mentioned earlier. Psychiatry: As mentioned earlier. PHYSICAL EXAMINATION: GENERAL: Alert and oriented times three. VITAL SIGNS: Pulse 91, blood pressure 126/77, respirations 18, temperature 97.5, pulse ox 98% on 2 L. HEENT: Conjunctivae normal. NECK: No jugular venous distention. CARDIOVASCULAR: S1, S2. RESPIRATORY: Breath sounds diminished in the bases. Scattered rhonchi and crackles. ABDOMEN: Soft, nontender. No mass palpable. LEGS: Status post right knee arthroplasty. NERVOUS SYSTEM: Higher functions as mentioned earlier. Moves all 4 limbs. No focal motor or sensory deficits. LYMPHATICS: No lymph nodes palpable of the neck, axilla and groin. SKIN: No ulcer, rash, bleeding. LABS: At this time shows labs are done prior to admission. Coags are negative. CBC and chemistries was within normal limits. Glucose 119, UA unremarkable. ASSESSMENT: 1. Status post right total knee arthroplasty. 2. History of fibromyalgia. 3. Hypertension. 4. History of gastroesophageal reflux disease. 5. Degenerative joint disease. 6. Rheumatoid arthritis. 7. syndrome. 8. History of back surgery. RECOMMENDATIONS AND DISCUSSION: In this 62-year-old woman who presented with multiple complex medical issues, we will monitor the patient closely, continue the current medications, management symptomatic treatment. Otherwise, I would recommend resume the home medications. Monitor the patient closely. Otherwise, I would recommend DVT prophylaxis. Incentive spirometry. Recommend close follow with Dr. Dalal after discharge from the hospital. Thank you, Dr. Yo for letting us participate in the care of this patient. We will follow the patient closely. Further recommendations to follow. MMODL / IJN: [id number] /
[2018-10-04 08:09] VITALS: BP 120/68; PULSE 73; TEMP 97.6
--- NOTE | 2018-10-04 08:30 | P.DS ---
Providers Date of admission: 10/03/18 11:39 Expected date of discharge: 10/04/18 Attending physician: Armani Yo Consults: 10/03/18 14:07 Consult Physician Routine Consulting Provider: Jasmin Baca Consult Reason/Comments: medical management Do you want consulting provider notified?: Yes Primary care physician: Zena Dalal - Discharge Diagnosis(es) (1) Primary osteoarthritis of right knee Current Visit: Yes Status: Acute (2) Status post total right knee replacement Current Visit: Yes Status: Acute Hospital Course: This is a 62-year-old female with known history of degenerative arthritis of the right knee. The patient presents for evaluation. After discussion and consideration patient elects to proceed with total knee arthroplasty. The patient is seen preoperatively by Dr. Yo and medically cleared for surgery by their primary care physician. Patient is admitted to [facility] on 10/03/2018 for total knee arthroplasty. The procedures performed without complication or sequelae. The patient is doing well postoperatively. Labs and vital signs are stable on day of discharge. On day of discharge patient's knee incision is healing well. There is minimal erythema. There is no drainage noted at this time. There is minimal soft tissue swelling to the knee. Patient has full foot and ankle motion without difficulty or pain. Neurovascular status to the right lower extremity is intact. Patient is discharged home in good condition. Please see med rec for accurate list of home medications. Plan - Discharge Summary New Discharge Prescriptions: New Aspirin 325 mg PO BID #60 tab HYDROcodone/APAP 5-325MG [[place] 5-325] 1 - 2 tab PO Q4-6H PRN #84 tab PRN Reason: Pain Sennosides [Senokot] 1 tab PO BID #60 tablet No Action Metoprolol Succinate [Toprol XL] 25 mg PO HS Cyclobenzaprine [Flexeril] 10 mg PO BID Hydroxychloroquine Sulfate [Plaquenil] 200 mg PO BID traMADol HCL [Ultram] 50 mg PO TID Gabapentin [Neurontin] 300 mg PO TID amLODIPine BESYLATE [Norvasc] 10 mg PO HS Aspirin 325 mg PO DAILY Discharge Medication List Cyclobenzaprine [Flexeril] 10 mg PO BID 09/09/15 [History] Hydroxychloroquine Sulfate [Plaquenil] 200 mg PO BID 09/09/15 [History] Metoprolol Succinate [Toprol XL] 25 mg PO HS 11/24/15 [History] Gabapentin [Neurontin] 300 mg PO TID 08/01/18 [History] amLODIPine BESYLATE [Norvasc] 10 mg PO HS 08/01/18 [History] traMADol HCL [Ultram] 50 mg PO TID 08/01/18 [History] Aspirin 325 mg PO DAILY 09/28/18 [History] Aspirin 325 mg PO BID #60 tab 10/04/18 [Rx] HYDROcodone/APAP 5-325MG [[place] 5-325] 1 - 2 tab PO Q4-6H PRN #84 tab 10/04/18 [ Rx] Sennosides [Senokot] 1 tab PO BID #60 tablet 10/04/18 [Rx] Follow up Appointment(s)/Referral(s): Armani Yo DO [Doctor of Osteopathic Medicine] - 2 Weeks Ambulatory/Diagnostic Orders: Continuous Passive Motion (CPM) Machine [DME.AMB1] Time Frame: 3 Weeks, Location : None Selected Activity/Diet/Wound Care/Special Instructions: Weightbearing as tolerated with a walker. CPM 5-6h daily. Leave dressing intact. May be removed on 10/13/2018. May shower with dressing on. Please follow up with [facility] and call with any questions or concerns, . Discharge Disposition: HOME WITH HOME HEALTH SERVICES
[2018-10-04] MEDS: CYCLOBENZAPRINE 10 MG TAB PO SCH (08:50)
[2018-10-04] MEDS: GABAPENTIN 300 MG CAP PO SCH (08:50)
[2018-10-04] MEDS: ASPIRIN 325 MG TAB PO SCH (08:50)
[2018-10-04] MEDS: HYDROXYCHLOROQUINE SULFATE 200 MG TAB PO SCH (08:50)
[2018-10-04] MEDS: traMADol 50 MG TAB PO SCH (08:51)
[2018-10-04] MEDS ORDERED: MELOXICAM 7.5 MG TAB PO SCH (09:00)
[2018-10-04 12:24] LABS: Basophils % (A) 0 %; Eosinophils % (A) 0 %; HCT 35.6 % (34.0-46.0); HGB 11.2 gm/dL (11.4-16.0); Hypochromasia Slight; Lymphocytes # (A) 0.9 k/uL (1.0-4.8); Lymphocytes % (A) 11 %; MCH 28.9 pg (25.0-35.0); MCHC 31.4 g/dL (31.0-37.0); MCV 92.2 fL (80.0-100.0); Mean Platelet Volume 7.3; Monocytes # (A) 0.4 k/uL (0-1.0); Monocytes % (A) 5 %; Neutrophils # (A) 6.8 k/uL (1.3-7.7); Neutrophils % (A) 83 %; Platelet Count 203 k/uL (150-450); RBC 3.86 m/uL (3.80-5.40); RDW 14.5 % (11.5-15.5); WBC 8.2 k/uL (3.8-10.6)
--- NOTE | 2018-10-04 19:42 | PN ---
PROGRESS NOTE DATE OF SERVICE: 10/04/2018 This 62-year-old woman who was admitted after right total knee arthroplasty, improving significantly. No chest pain. No palpitations. No fever. EXAM: Alert and oriented times three. Pulse is 73, blood pressure 120/60, respirations 16, temperature 97.2, pulse ox 98% on room air. HEENT: Conjunctivae normal. NECK: No jugular venous distention. CARDIOVASCULAR: S1, S2. RESPIRATIONS: Breath sounds diminished in the bases. A few rhonchi. No crackles. ABDOMEN is soft. Nontender. CENTRAL NERVOUS SYSTEM: No focal deficits. LEGS: Status post arthroplasty. LABS: Hemoglobin 11.2. ASSESSMENT: 1. Status post right total knee joint arthroplasty. 2. History of fibromyalgia. 3. Hypertension. 4. History of gastroesophageal reflux disease. 5. History of degenerative joint disease. 6. Rheumatoid arthritis. 7. History of back surgery. RECOMMENDATIONS AND DISCUSSION: Recommend to continue current medications. Continue with monitoring and symptomatic treatment. Otherwise, at this time, I recommend incentive spirometer. Resume the home medications. Closely follow with primary physician in the outpatient setting. Further recommendations to follow. MMODL / IJN: [id number] /
== END 2018-10-04 14:09 | disposition home health service (06) | DRG 470 ==
LOC: 2ORMAIN 11:39 → 4SSUR 15:51
PROVIDERS: ADMIT Orthopaedic Surgery; ATTEND Orthopaedic Surgery
PROC: 0SRC069 Replacement of Right Knee Joint with Oxidized Zirconium on Polyethylene Synthetic Substitute, Cemented, Open Approach (ICD-10-PCS; principal; 2018-10-03 13:35)
DX: M17.11 Unilateral primary osteoarthritis, right knee (principal); I10 Essential (primary) hypertension; K21.9 Gastro-esophageal reflux disease without esophagitis; K58.9 Irritable bowel syndrome, unspecified; M06.9 Rheumatoid arthritis, unspecified; M79.7 Fibromyalgia; Z80.9 Family history of malignant neoplasm, unspecified; Z87.01 Personal history of pneumonia (recurrent); Z79.82 Long term (current) use of aspirin; Z79.899 Other long term (current) drug therapy
CPT/HCPCS: 85025; 88300